=== PATIENT | male | born 1990 | race Caucasian/White ===

== ENCOUNTER → 2022-07-16 | Outpatient (CLI) | payer OTHER ==
[~2022-07-16] VITALS: Ht 167.6 cm; Wt 132.4 kg
[2022-07-16] VITALS (12 sets, daily range): BP systolic 107–151; BP diastolic 68–83; PULSE 66–89; TEMP 98.3
[~2022-07-16] MED LIST: ZESTRIL 10MG10 MG PO
[2022-07-16 10:42] LABS: INR 1.1 (0.8-3.0); PROTHROMBIN TIME 12.1 SECONDS (9.7-12.8)
--- NOTE | 2022-07-16 11:24 | NUR ---
Pt to ct per ambulation. Monitors applied. Pt on ct table in supine position.
--- NOTE | 2022-07-16 11:40 | NUR ---
Specimens obtained by Dr Hutchinson and placed in formalin. Specimen labeled.
== END ==
LOC: COL.RAD 07-01 12:00
PROVIDERS: Internal Medicine Gastroenterology
DX: R94.5 Abnormal results of liver function studies (principal)
CPT/HCPCS: 32109